=== PATIENT | male | born 1990 | race African-American/Black ===

== ENCOUNTER 2016-10-17 06:12 | Emergency (ER) | payer OTHER ==
[~2016-10-17] VITALS: Ht 185.4 cm; Wt 65.8 kg
--- NOTE | ~2016-10-17 | EKG ---
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
[~2016-10-17 06:12] MED LIST: HUMIRA20 MG/0.4; IBUPROFEN 600600 M1 PO; KEFLEX500 MG PO; NORCO 5-325 TA1 EACH PO
[2016-10-17 07:06] LABS: HEMATOCRIT 32.7 % (42.0-52.0); HEMOGLOBIN 10.1 gm/dL (14.0-18.0); MCH 21.6 pg (26.0-34.0); MCHC 30.7 g/dL (28.0-37.0); MCV 70.2 fL (80.0-100.0); PLATELET COUNT 382 thou/uL (150-400); RBC 4.66 mil/uL (4.50-6.00); RDW 18.1 % (10.5-14.5); WBC 6.9 thou/uL (4.0-11.0)
[2016-10-17 07:14] LABS: CALCIUM 8.4 mg/dL (8.5-10.1); CREATININE 1.3 mg/dL (0.7-1.3); MANUAL DIFF YES; POTASSIUM 3.5 mmol/L (3.5-5.1)
[2016-10-17 07:53] LABS: ABSOLUTE NEUTROPHILS 3.9 thou/uL (1.4-8.2); ANISOCYTOSIS 2+; HYPOCHROMASIA 2+; MICROCYTES 2+; TOTAL CELL COUNT 100
[2016-10-17 08:23] LABS: AMP/METHAMP Negative (Negative); BARBITURATES Negative (Negative); BENZODIAZEPINES Negative (Negative); COCAINE Negative (Negative); METHADONE Negative (Negative); OPIATES Negative (Negative); PCP Negative (Negative); THC Negative (Negative)
[2016-10-17 08:27] VITALS: BP 115/67
== END 2016-10-17 08:05 | disposition home or self-care (01) ==
LOC: ER 06:12
PROVIDERS: Emergency Medicine
DX: M54.5 Low back pain (principal); T14.8 Other injury of unspecified body region; K50.90 Crohn's disease, unspecified, without complications; W18.39XA Other fall on same level, initial encounter; Y93.89 Activity, other specified; Y92.488 Other paved roadways as the place of occurrence of the external cause; Y99.8 Other external cause status